=== PATIENT | female | born 1950 | race Caucasian/White ===

== ENCOUNTER 2017-04-17 19:23 | Emergency (ER) | payer MEDICARE, BC ==
[~2017-04-17] VITALS: Ht 161.3 cm; Wt 50.1 kg
[~2017-04-17 19:23] MED LIST: ACET-2723 PO; CETI-115 PO; NAPR220T61 PO; OMEP40CA52 PO; TRIA10.82 EA NOSTRIL
[2017-04-17 19:26] VITALS: Ht 161.3 cm; Wt 50.1 kg
--- OUTSIDE RECORDS SUMMARY | 2017-04-17 19:27 | XMS REPORT | Continuity of Care Document ---
Author Author [facility] Organization [facility] Address Unknown Phone Unavailable Support Name Relationship Address Phone ABDULAZIZ RIVERA FACS, MD Caregiver [address] [place] [address] [place] [address] Unavailable MELO BROWN MD Caregiver [address] [place] [address] [place] [address] Unavailable VU STRINGER Next Of Kin [address] [place], [place] [id number] Insurance Providers Guarantor Cindi Szymanski Address [address] [place] [id number] Email JORGE [email or web address] Federal Policy Number [id number] Subscriber's Name Jorge Luis Szymanski Relationship 01 Spouse Group Number [id number] Payer Medicare Policy Number [id number] Subscriber's Name Cindi Szymanski Relationship 18 Self Advance Directives Directive Response Recorded Date/Time Dr Mercado Resuscitation Status Full Code 10/21/16 3:51pm Resuscitation Documents on File No 10/24/16 9:25am DPOA for Healthcare Only Yes 10/24/16 9:25am Living Will Yes 10/24/16 9:25am Problems No problem information available. Medications Current Home Medications Medication Dose Units Route Directions Days Qty Instructions Start Date Acetaminophen (Tylenol Extra Strength) 500 Mg Tablet 1-2 Tab Oral Every 6 Hours as needed for Pain/Fever 10/21/16 Cetirizine Hcl (Zyrtec) 10 Mg Tablet 1 Tab Oral Daily 10/21/16 Naproxen Sodium (Aleve) 220 Mg Tablet 1 Tab Oral Daily as needed for Pain 10/21/16 Omeprazole 40 Mg Capsule.dr Alva Cap Oral Daily 90 10/21/16 Triamcinolone Acetonide (Nasacort) 10.8 Ml [place] 2 [place] Each Nostril Daily 2 sprays into EACH nostril one time a day. 10/21/16 Social History Social History Problem Response Recorded Date/Time Onset Date Status Reason for Hospitalization COLONOSCOPY 10/24/2016 10:52am Not Applicable Not Applicable Chewing Tobacco Status No 10/24/2016 9:26am Not Applicable Not Applicable Hx Substance Use No 10/24/2016 9:26am Not Applicable Not Applicable Hx Alcohol Use Y SOCIAL 10/24/2016 9:26am Not Applicable Not Applicable Has the pt used tobacco in the last 12 months No 10/24/2016 9:26am Not Applicable Not Applicable Query Response Start Date Stop Date Smoking Status Never smoker Hospital Discharge Instructions Instructions: Care Instructions: I was in the hospital because (patient own words): COLONOSCOPY Discharge Diet: As Tolerated Discharge Activity: Do NOT drive today, do not operate dangerous machinery or sign legal papers. Follow Up Appointments: Follow up with Dr. Rivera as needed. Pending Lab / Results: Will be notified Patient Instructions: Results/recommendations will be mailed in about 2-3 weeks. Expected Signs/Symptoms: None Notify Physician If: Call physician if temperature is GREATER than 101.5, severe abdominal pain or severe rectal bleeding. During Business Hours:: Call [phone] After Business Hours:: Call [phone] (hospital) Pain Management/Treatment: Call Dr. Rivera if increasing abdominal pain Wound/Incision Care: N/A Condition at time of discharge: Good Plan of Care Discharge Date 10/24/16 11:15am Instructions/Education Provided [facility] Surgical Services DI for Colonoscopy Prescriptions See Medication Section Functional Status Query Response Date Recorded Ability to complete ADL's impeded by No change October 24, 2016 9:25am Allergies, Adverse Reactions, Alerts Allergen Type Severity Reaction Status Last Updated Sulfa (Sulfonamide Antibiotics) Allergy Mild RASH Active 10/24/16 Immunizations Query Response on File Recorded Date/Time Hx Influenza Vaccination Y AUG 2016 10/24/16 9:26am Hx Pneumococcal Vaccination Y AUG 2016 10/24/16 9:26am Hx Influenza Vaccination Y AUG 2016 10/24/16 9:26am Vital Signs Acute Vital Signs Vital Response Date/Time Temperature (Fahrenheit) 97.3 deg F (96.8 - 99.1) 10/24/2016 10:43am Temperature (Calculated Celsius) 36.04364 degrees C (36.0 - 37.3) 10/24/2016 10:43am Temperature Source Temporal 10/24/2016 10:43am Pulse Rate (adult) 68 bpm (60 - 100) 10/24/2016 11:10am Respiratory Rate 16 breaths/min (10 - 20) 10/24/2016 11:10am O2 Sat by Pulse Oximetry 100 % (90 - 100) 10/24/2016 11:10am Oxygen Delivery Method Room Air 10/24/2016 11:10am Blood Pressure 151/68 mm Hg 10/24/2016 11:10am Blood Pressure Source Automatic Cuff 10/24/2016 11:10am Height (Feet) 5 feet 10/24/2016 9:08am Height (Inches) 3.00 inches 10/24/2016 9:08am Weight (Kilograms) 45.600 kg 10/24/2016 9:08am Body Mass Index (BMI) 17.8 10/24/2016 9:08am Results No known relevant diagnostic tests, laboratory data and/or discharge summary. Procedures Procedure Status Date Provider(s) COMP SCREEN MAMMOGRAM ADD-ON Completed 08/24/16 BREAST TOMOSYNTHESIS BI Completed 08/24/16 083285"SCREENING MAMMOGRAPHY, PRODUCING DIRECT DIGITAL IMAGE Completed [id number]"MAGNETIC RESONANCE IMAGING WITHOUT CONTRAST, BREAST; Completed Colonoscopy Completed 10/24/16 ABDULAZIZ RIVERA MD, FACS, CWS Esophagogastroduodenoscopy (EGD) with closed biopsy Completed 10/24/16 ABDULAZIZ RIVERA MD, ALICIA, GRECIAS Encounters Encounter Location Arrival/Admit Date Discharge/Depart Date Attending Provider Departed [facility] 10/24/16 8:55am 10/24/16 11 :15am ABDULAZIZ RIVERA FACS, MD Registered [facility] 09/01/16 3:27pm ANA IBARRA APRN Registered [facility] 08/24/16 9:17am [facility]
--- OUTSIDE RECORDS SUMMARY | 2017-04-17 19:27 | XMS REPORT | Referral Summary ---
Demographics Preferred Language Sami Marital Status Congregation Affiliation Jewish Race White Ethnic Group Not or Author Author [facility] Organization [facility] Address Unknown Phone Unavailable Care Team Providers Care Head Bookkeeper Name Role Phone Marco Grajeda Primary Care Physician [phone] Encounter [facility] BRIAN [id number] Date(s): 08/22/16 - 08/22/16 [facility], [address] [place], [place] [address] Discharge Diagnosis: Weight loss Discharge Diagnosis: Breast lump on right side at 2 o'clock position Discharge Diagnosis: Depression Discharge Diagnosis: GERD without esophagitis Discharge Diagnosis: Chronic daily headache Discharge Disposition: 01-Home or Self Care Attending Physician: Shilpa Olsen APRN Admitting Physician: Shilpa Olsen APRN Vital Signs Most recent to 1 oldest [Reference Range]: Temperature Tympanic 36.8 degC [36.6-38.1 degC] (08/22/16 9:43 AM) Peripheral Pulse 96 bpm Rate [60-100 bpm] (08/22/16 9:43 AM) Blood Pressure 126/84 mmHg [90-140/60-90 mmHg] (08/22/16 9:43 AM) Problem List Condition Effective Dates Status Health Status Informant Sinus < 09/29/15 Resolved trouble(Confirmed) Ear pain(Confirmed) < 09/29/15 Resolved Allergies, Adverse Reactions, Alerts Substance Reaction Severity Status sulfanilamide topical Active Medications Nasacort AQ 55 mcg/inh nasal spray sprays, Nasal, Daily, 0 Refill(s) Start Date: 01/06/16 Status: Ordered PriLOSEC 40 mg oral delayed release capsule 40 mg 1 caps, Oral, Daily, # 90 caps, 0 Refill(s), Pharmacy: [id number], 1 caps Oral Daily Start Date: 08/22/16 Status: Ordered Results Hematology Most recent to 1 oldest [Reference Range]: WBC [4.8-10.8 5.4 10*3/uL 10*3/uL] (08/22/16 10:38 AM) RBC [4.00-5.20] 4.24 (08/22/16 10:38 AM) Hgb [12.0-16.0 14.0 gm/dL gm/dL] (08/22/16 10:38 AM) Hct [37.0-47.0 %] 40.7 % (08/22/16 10:38 AM) MCV [82.0-99.0 fL] 96.0 fL (08/22/16 10:38 AM) MCH [27.0-32.0 pg] 33.0 pg *HI* (08/22/16 10:38 AM) MCHC [32.0-36.0 34.4 gm/dL gm/dL] (08/22/16 10:38 AM) RDW [11.5-14.5 %] 12.0 % (08/22/16 10:38 AM) Platelet [150-400 399 10*3/uL 10*3/uL] (08/22/16 10:38 AM) MPV [8.8-14.8 fL] 8.2 fL *LOW* (08/22/16 10:38 AM) Immature 0.2 % Granulocytes (08/22/16 10:38 AM) [0.0-1.0 %] Neutrophils [51-75 56 % %] (08/22/16 10:38 AM) Lymphocytes [20-46 34 % %] (08/22/16 10:38 AM) Monocytes [4-11 %] 8 % (08/22/16 10:38 AM) Eosinophils [0-4 %] 1 % (08/22/16 10:38 AM) Basophils [0-2 %] 0 % (08/22/16 10:38 AM) Neutro Absolute 3.03 10*3 [1.90-7.00 10*3] (08/22/16 10:38 AM) Lymph Absolute 1.84 10*3 [0.80-3.30 10*3] (08/22/16 10:38 AM) Boyd Absolute 0.43 10*3 [0.30-1.00 10*3] (08/22/16 10:38 AM) Eos Absolute 0.06 10*3 [0.00-0.50 10*3] (10/3/16 10:38 AM) Baso Absolute 0.02 10*3 [0.00-0.20 10*3] (08/22/16 10:38 AM) Chemistry Most recent to 1 oldest [Reference Range]: Sodium Lvl [135-144 139 mEq/L mEq/L] (08/22/16 10:38 AM) Potassium Lvl 3.9 mEq/L [3.5-5.2 mEq/L] (08/22/16 10:38 AM) Chloride [99-111 101 mEq/L mEq/L] (08/22/16 10:38 AM) CO2 [22-31 mEq/L] 26 mEq/L (08/22/16 10:38 AM) AGAP [3-20] 12 (08/22/16 10:38 AM) BUN [10-20 mg/dL] 14 mg/dL (08/22/16 10:38 AM) Glucose Lvl [70-99 108 mg/dL mg/dL] *HI* (08/22/16 10:38 AM) Creatinine Lvl 0.95 mg/dL [0.57-1.11 mg/dL] (08/22/16 10:38 AM) eGFR [>60 mL/min] 59 mL/min 1 *ABN* (08/22/16 10:38 AM) Calcium Lvl 9.9 mg/dL [8.9-10.5 mg/dL] (08/22/16 10:38 AM) Albumin Lvl [3.4-4.8 4.9 gm/dL gm/dL] *HI* (08/22/16 10:38 AM) Total Protein 7.2 gm/dL [6.0-7.6 gm/dL] (08/22/16 10:38 AM) Globulin [1.8-4.0 2.3 gm/dL gm/dL] (08/22/16 10:38 AM) ALT [0-55 U/L] 21 U/L (08/22/16 10:38 AM) AST [5-34 U/L] 26 U/L (08/22/16 10:38 AM) Alk Phos [40-150 70 U/L U/L] (08/22/16 10:38 AM) Bili Total [0.2-1.2 0.5 mg/dL mg/dL] (08/22/16 10:38 AM) Prealbumin [14-37 32 mg/dL mg/dL] (08/22/16 10:38 AM) TSH with Reflex Free 1.71 T4 [0.35-4.94] (08/22/16 10:38 AM) 1Result Comment: Multiply eGFR results by 1.21 for race. Urinalysis Most recent to 1 oldest [Reference Range]: UA Color Dk Yellow (08/22/16 10:46 AM) UA Appear Cloudy *ABN* (08/22/16 10:46 AM) UA pH [5.0-8.0] 5.5 (08/22/16 10:46 AM) UA Leuk Est Negative [Negative] (08/22/16 10:46 AM) UA Nitrite Negative [Negative] (08/22/16 10:46 AM) UA Protein Pos 3+ 1 [Negative] *CRIT* (08/22/16 10:46 AM) UA Glucose Negative [Negative] (08/22/16 10:46 AM) UA Ketones Negative [Negative] (08/22/16 10:46 AM) UA Urobilinogen 0.2 mg/dL [<=1.0 mg/dL] (08/22/16 10:46 AM) UA Bili [Negative] Positive 2 *ABN* (08/22/16 10:46 AM) UA Blood [Negative] Pos 1+ *ABN* (08/22/16 10:46 AM) UA Spec Grav >=1.030 [1.003-1.030] (08/22/16 10:46 AM) Type Clean Catch (08/22/16 10:46 AM) UA WBC [0-4] 5-10 *ABN* (08/22/16 10:46 AM) UA RBC [0-2] 5-10 *ABN* (08/22/16 10:46 AM) UA Bacteria Moderate *ABN* (08/22/16 10:46 AM) Crystals Amorphous 3 (08/22/16 10:46 AM) UA Hyal Cast >12 (08/22/16 10:46 AM) UA Gran Cast >12 [LPF] *ABN* (08/22/16 10:46 AM) UA WBC Cast 4-6 *ABN* (08/22/16 10:46 AM) 1Result Comment: Critical protein rechecked and called to Zhao/Shilpa @ 1103 by pls. 2Result Comment: Unable to confirm positive Bilirubin by Ictotest due to national shortage of reagent. 3Result Comment: Occasional Immunizations Vaccine Date Refusal Reason influenza virus vaccine, inactivated 08/22/16 influenza virus vaccine, inactivated 08/12/15 influenza virus vaccine, inactivated 06/30/14 influenza virus vaccine, live 07/01/13 influenza virus vaccine, live 07/27/12 influenza virus vaccine, live 10/03/00 pneumococcal 13-valent conjugate vaccine 08/22/16 pneumococcal 23-polyvalent vaccine 08/12/15 zoster vaccine live 12/24/14 Procedures Procedure Date Related Diagnosis Body Site Mastoidectomy Social History Social History Type Response Smoking Status Never smoker Assessment and Plan Extracted from: Title: Office Visit Note-weight Author: Shilpa Olsen APPEALS RN Date: 08/22 loss/breast lump Assessment/Plan 1.Weight loss Discussed with the patient her weight loss may be multi factorial. I think is reasonable to pursue evaluationfor medical causes. Certainly her depression and life stressors could be contributing/causing it. Labs as ordered. Colonoscopy recommended. Patient to schedule with Dr. Lares. Recommend she drink a nutritional supplement such as boost, ensure or Og[place] Instant Breakfastonce a day. Encourage her to eat small meals 4-5 times per day. Increase her protein intake. Plan recheck in 2 weeks. Ordered: CBC w/ Differential Comprehensive Metabolic Panel Prealbumin TSH with Reflex Free T4 Urinalysis with Culture if Indicated XR Chest 2 Views 2.Breast lump on right side at 2 o'clock position Difficult to assess. Recommend diagnosticmammogram of the right breast. Screening of the left. Patient to schedule at [facility]. I suspect she may need a sonogram also. 3.GERD without esophagitis Symptomatic. Start Ctabspcl14 mg daily. Avoid caffeine, nights nonsteroidals and aspirin. Avoid alcohol. When she is evaluated by Dr. Lares for colonoscopy if her acid reflux symptoms and weighthave not improved may need to consider EGD also. 4.Depression We discussed therapy and medication management. At this point patient does not feel like it is necessary. She is ashamed of admitting the feelings of depression. 5.Chronic daily headache Discussed possibility ofrebound headaches versus other possible causes for her headaches. I recommend she switch to plain [id number] mg 2 tabletsevery day as needed. Discussed that the Excedrin Migraine may be increasing her acid reflux symptoms. If her headaches do not improve, may want to consider imaging. Plan recheck in 2 weeks. Sooner if other problems arise. Counseled on flu andpneumococcal vaccine. Given by nursing.
--- OUTSIDE RECORDS SUMMARY | 2017-04-17 19:27 | XMS REPORT | Referral Summary ---
Author Author [facility] Organization [facility] Address Unknown Phone Unavailable Care Team Providers Care Cryptologic Linguist Name Role Phone Marco Grajeda Primary Care Physician [phone] Encounter Date(s): 09/05/16 - 09/05/16 [facility], [address] [place] [address]- Discharge Diagnosis: GERD without esophagitis Discharge Diagnosis: Abnormal urine Discharge Diagnosis: Chronic daily headache Discharge Diagnosis: Seasonal allergic rhinitis Discharge Diagnosis: Breast lump on right side at 2 o'clock position Discharge Diagnosis: Weight loss Discharge Disposition: 01-Home or Self Care Attending Physician: Shilpa Olsen APRN Admitting Physician: Shilpa Olsen APRN Vital Signs Most recent to 1 oldest [Reference Range]: Temperature Tympanic 36.6 degC [36.6-38.1 degC] (09/05/16 8:53 AM) Peripheral Pulse 84 bpm Rate [60-100 bpm] (09/05/16 8:53 AM) Blood Pressure 120/76 mmHg [90-140/60-90 mmHg] (09/05/16 8:53 AM) Problem List Condition Effective Dates Status Health Status Informant Sinus < 09/29/15 Resolved trouble(Confirmed) GERD without Active esophagitis(Confirme d) Ear pain(Confirmed) < 09/29/15 Resolved Allergies, Adverse Reactions, Alerts Substance Reaction Severity Status sulfanilamide topical Active Medications Nasacort AQ 55 mcg/inh nasal spray sprays, Nasal, Daily, 0 Refill(s) Start Date: 01/06/16 Status: Ordered PriLOSEC 40 mg oral delayed release capsule 40 mg 1 caps, Oral, Daily, # 90 caps, 0 Refill(s), Pharmacy: [id number], 1 caps Oral Daily Start Date: 08/22/16 Status: Ordered Results No data available for this section Immunizations Vaccine Date Refusal Reason influenza virus vaccine, inactivated 08/22/16 influenza virus vaccine, inactivated 08/12/15 influenza virus vaccine, inactivated 06/30/14 influenza virus vaccine, live 07/01/13 influenza virus vaccine, live 07/27/12 influenza virus vaccine, live 10/03/00 pneumococcal 13-valent conjugate vaccine 08/22/16 pneumococcal 23-polyvalent vaccine 08/12/15 zoster vaccine live 12/24/14 Procedures Procedure Date Related Diagnosis Body Site Mammogram1 08/24/16 [place]oide[place] [facility] [place] Social History Social History Type Response Smoking Status Never smoker Assessment and Plan Extracted from: Title: Office Visit Note-GERD/wt Author: Shilpa Olsen OBGYN NURSE Date: Assessment/Plan 1.GERD without esophagitis Continue Prilosecdaily with dietary modifications. Continue to stay off of Excedrin Migraine. Keep appointment with Dr. Lares September 21 to review need for EGD and colonoscopy. 2.Breast lump on right side at 2 o'clock position MRI of the breast pending. We'll notify her of results and further plan of care. 3.Chronic daily headache Improved. Continue with what she is doing. 4.Weight loss Weight is up 3 pounds. Continue boost daily until she has regained herweight to 115. 5.Seasonal allergic rhinitis Continue Nasacort first freeze. 6.Abnormal urine Renal sonogram pending. We'll notify her of results and further plan of care. Recent labs and imaging reviewed with patient. Plan follow-up in one month or sooner if issues arise. Questions and concerns were answered.
--- OUTSIDE RECORDS SUMMARY | 2017-04-17 19:27 | XMS REPORT | Referral Summary ---
Author Author [facility] Organization [facility] Address Unknown Phone Unavailable Care Team Providers Care Commission Agent Livestock Name Role Phone Marco Grajeda Primary Care Physician [phone] Encounter VC Date(s): 09/21/16 - 09/21/16 [facility] [address] [place] [address] [place] [id number] Discharge Diagnosis: Colon cancer screening Discharge Diagnosis: Weight loss Discharge Diagnosis: Chronic GERD Discharge Disposition: 01-Home or Self Care Attending Physician: Aiden Lares MD Admitting Physician: Aiden Lares MD Referring Physician: Alex Grajeda MD Vital Signs Most recent to 1 oldest [Reference Range]: Temperature Tympanic 36.7 degC [36.6-38.1 degC] (09/21/16 1:03 PM) Peripheral Pulse 71 bpm Rate [60-100 bpm] (09/21/16 1:03 PM) Blood Pressure 134/76 mmHg [90-140/60-90 mmHg] (09/21/16 1:03 PM) SpO2 98 % (09/21/16 1:03 PM) Problem List Condition Effective Dates Status Health [...] Daily, # 90 caps, 0 Refill(s), Pharmacy: [id number], 1 caps Oral Daily Start Date: 08/22/16 [...] Related Diagnosis Body Site Mammogram1 08/24/16 Mastoidectomy [facility] benign Social History Social History Type Response Smoking Status Never smoker Assessment and Plan Extracted from: Title: Ambulatory Patient Education Author: Aiden Lares MD Date: 09/21/16 Preventive Medicine Colonoscopy A colonoscopy is an exam to look at the entire large intestine (colon). This exam can help find problems such as tumors, polyps, inflammation, and areas of bleeding. The exam takes about 1 hour. LET YOUR HEALTH CARE PROVIDER KNOW ABOUT: Any allergies you have. All medicines you are taking, including vitamins, herbs, eye drops, creams, and [id number]-unonzeb medicines. Previous problems you or members of your family have had with the use of anesthetics. Any blood disorders you have. Previous surgeries you have had. Medical conditions you have. RISKS AND COMPLICATIONS Generally, this is a safe procedure. However, as with any procedure, complications can occur. Possible complications include: Bleeding. Tearing or rupture of the colon wall. Reaction to medicines given during the exam. Infection (rare). BEFORE THE PROCEDURE Ask your health care provider about changing or stopping your regular medicines. You may be prescribed an oral bowel prep. This involves drinking a large amount of medicated liquid, starting the day before your procedure. The liquid will cause you to have multiple loose stools until your stool is almost clear or light green. This cleans out your colon in preparation for the procedure. Do not eat or drink anything else once you have started the bowel prep, unless your health care provider tells you it is safe to do so. Arrange for someone to drive you home after the procedure. PROCEDURE You will be given medicine to help you relax (sedative). You will lie on your side with your knees bent. A long, flexible tube with a light and camera on the end (colonoscope) will be inserted through the rectum and into the colon. The camera sends video back to a computer screen as it moves through the colon. The colonoscope also releases carbon dioxide gas to inflate the colon. This helps your health care provider see the area better. During the exam, your health care provider may take a small tissue sample (biopsy) to be examined under a microscope if any abnormalities are found. The exam is finished when the entire colon has been viewed. AFTER THE PROCEDURE Do not drive for 24 hours after the exam. You may have a small amount of blood in your stool. You may pass moderate amounts of gas and have mild abdominal cramping or bloating. This is caused by the gas used to inflate your colon during the exam. Ask when your test results will be ready and how you will get your results. Make sure you get your test results. This information is not intended to replace advice given to you by your health care provider. Make sure you discuss any questions you have with your health care provider. Document Released: 11/03/2001 Document Revised: 08/27/2014 Document Reviewed: [employer] Interactive Patient Education 2016 [employer] No follow up information was provided. Extracted from: Title: Office Visit Note Author: Aiden Lares MD Date: 09/21/16 Assessment/Plan 1.Chronic GERD Ordered: Office Visit Level 4 New 55367 2.Colon cancer screening Ordered: Office Visit Level 4 New 16217 3.Weight loss Ordered: Office Visit Level 4 New [address]202 Plan: Bidirectional Endoscopy. I did review the patient's chart include office note performed by her PCPs comparator operator from September 05, 2016. C that she had lab work obtained on August 22, 2016 consisting of a CBCCMP and TSH level all of which was essentially within normal limits. I informed the patient that I would recommend proceeding with both an EGD as well as a colonoscopygiven her history for weight loss,fact that she 65 years of age and had never underwent prior colonoscopy,as well as secondary to her history forNSAID use and epigastric discomfort. Risk of endoscopy was discussed with the patient. Risks include but are not inclusive of bleeding and/or perforation requiring surgery. Patient understood and was scheduled.
--- OUTSIDE RECORDS SUMMARY | 2017-04-17 19:27 | XMS REPORT | Continuity of Care Document ---
Author Author [facility] Organization [facility] Address Unknown Phone Unavailable Allergies Medications Problems Procedures Results Encounters ACCT No. Visit Date/Time Discharge Status Pt. Type Provider Facility Loc./Unit Complaint [id number] 11/28/2013 13:46:00 11/28/2013 23 :59:59 CLS Outpatient
--- OUTSIDE RECORDS SUMMARY | 2017-04-17 19:27 | XMS REPORT | Referral Summary ---
Author Author [facility], Family Medicine Organization [facility] Address Unknown Phone Unavailable Care Team Providers Care Technician Terminal And Repeater Name Role Phone Marco Grajeda Primary Care Physician [phone] Encounter [facility] [id number] Date(s): 09/27/16 - 09/27/16 [facility], [address] [place] [id number] Discharge Diagnosis: GERD without esophagitis Discharge Diagnosis: Acute serous otitis media, right ear Discharge Diagnosis: Hyperglyceridemia Discharge Diagnosis: Weight loss Discharge Diagnosis: Seasonal allergic rhinitis Discharge Diagnosis: Chronic daily headache Discharge Diagnosis: Lipids abnormal Discharge Disposition: 01-Home or Self Care Attending Physician: Shilpa Olsen APRN Admitting Physician: Shilpa Olsen APRN Vital Signs Most recent to 1 oldest [Reference Range]: Temperature Tympanic 36.8 degC [36.6-38.1 degC] (09/27/16 10:52 AM) Peripheral Pulse 68 bpm Rate [60-100 bpm] (09/27/16 10:52 AM) Blood Pressure 114/76 mmHg [90-140/60-90 mmHg] (09/27/16 10:52 AM) Problem List Condition Effective Dates Status Health Status Informant Sinus < 09/29/15 Resolved trouble(Confirmed) GERD without Active esophagitis(Confirme d) Ear pain(Confirmed) < 09/29/15 Resolved Allergies, Adverse Reactions, Alerts Substance Reaction Severity Status sulfanilamide topical Active Medications amoxicillin 875 mg oral tablet 875 mg 1 tabs, Oral, BID, X 10 days, # 20 tabs, 0 Refill(s), Pharmacy: [id number], 1 tabs Oral BID,x10 days Start Date: 09/27/16 Stop Date: 10/07/16 Status: Ordered Nasacort AQ 55 mcg/inh nasal spray 1 sprays, Nasal, Daily, # 3 Each, 3 Refill(s), Pharmacy: [id number] Start Date: 09/27/16 Status: Ordered PriLOSEC 40 mg oral delayed release capsule 40 mg 1 caps, Oral, Daily, # 90 caps, 0 Refill(s), Pharmacy: [id number], 1 caps Oral Daily Start Date: 08/22/16 [...] Related Diagnosis Body Site Mammogram1 08/24/16 Mastoidectomy [facility] benign Social History Social History Type Response Smoking Status Never smoker Assessment and Plan Extracted from: Title: Office Visit Note-ear Author: Shilpa Olsen APRN Date: 09/27/16 Assessment/Plan 1.Acute serous otitis media, right ear Amoxicillin 875 mg one by mouth twice a day 10 days. Let me know if itdoes not improve. 2.Weight loss Encourage her to work on eating more. Frequent snacking. Nutritional supplement. 3.Seasonal allergic rhinitis Continue fluticasone one spray twice a day routinely. Well controlled. 4.Chronic daily headache Overall improved withstopping Excedrin and decreasing caffeine intake. 5.GERD without esophagitis Well controlled with Prilosec. Continue same. EGD and colonoscopy per Dr. Lares. Plan follow-up in 3months or sooner if medical needs arise.
--- OUTSIDE RECORDS SUMMARY | 2017-04-17 19:34 | XMS REPORT | Continuity of Care Document ---
Author Author [facility] Organization [facility] Address Unknown Phone Unavailable Allergies Medications Problems Procedures Results Encounters ACCT No. Visit Date/Time Discharge Status Pt. Type Provider Facility Loc./Unit Complaint [id number] 11/28/2013 13:46:00 11/28/2013 23 :59:59 CLS Outpatient
--- NOTE | 2017-04-17 19:37 | NUR ---
DR DR LINDSEY AT BEDSIDE.
--- NOTE | 2017-04-17 19:44 | ERPDOC ---
Departure Disposition Decision Date: April 17, 2017 Disposition Decision Time: 21:31 Disposition: 01 DISCHARGED HOME, SELF-CARE Impression Impression Impression: Primary Impression: Viral gastroenteritis Additional Impression: Dehydration Severity: Severe Condition: Improved Seen By: Physician only Referrals: MELO BROWN MD (Family) Patient Instructions: Gastroenteritis (ED) Problems/Meds/Labs Reviewed?: Yes Medications reviewed and manag: Yes Additional Instructions: Zofran 4 mg, one tablet 4 times daily as needed for nausea or vomiting Drink at least 2 quarts of fluid daily for the next 2 days, then return to her normal intake of fluids Follow up care ordered?: Yes Mental Status: Alert Scripts Ondansetron (Zofran Odt) 4 Mg Tab.rapdis 4 MG PO Q6HR, #10 TAB Oral disintegrating tablet Prov: WAGNER LINDSEY MD 04/17/17 HPI - Abdominal Pain General Chief Complaint: Nausea,Vomiting,Diarrhea Stated Complaint: UNABLE TO KEEP ANYTHING DOWN Time Seen by Provider: 19:24 Source: patient, family History/Exam Limitations: no limitations HPI - Abdominal Pain Initial Comments Nausea, vomiting, and periodic left lower quadrant abdominal cramping. Past 2 days. Patient has been traveling, over the weekend, and when she was in [place] she became sick. She has had several episodes similar to this in the past year, and in fact has had colonoscopy for questionable chronic blood loss and chronic weight loss. Patient had no findings on the colonoscopy. Patient does have a history of GERD, is supposed to be using Prilosec routinely , but uses it sporadically at best. Occurred At: home Onset: Gradual Quality: cramping Location: LLQ Radiation: no radiation Associated Symptoms: nausea/vomiting, DENIES: back pain, chest pain, diaphoresis, fatigue, fever/chills, headache, heartburn, rash, shortness of breath, swelling/mass in abdomen, syncope, weakness Hx of Similar Symptoms: Yes Allergies: Coded Allergies: Sulfa (Sulfonamide Antibiotics) (Verified Allergy, Mild, RASH, 04/17/17) Past History Patient Medical History Problem List Updates: Chronic weight loss Past Medical History GI: GERD Surgical History Denies Surgeries Vaccines Hx Influenza Vaccination: Yes (AUG 2016) Hx Pneumococcal Vaccination: Yes (AUG 2016) Social History Smoking Status: Never smoker Does patient use chewing tobac: No Second Hand Exposure: No Substance Use Type: does not use Record Review Pertinent history updated: Yes Review of Systems Constitutional Constitutional: fatigue, weakness, DENIES: appetite decrease, appetite increase , chills, dizziness, fever ENMT Ears: DENIES: pain Hearing: DENIES: hearing loss, tinnitus Balance: DENIES: vertigo Mouth/Throat: DENIES: change in swallowing, change in voice, hoarsness, painful swallowing, sore throat Cardiovascular Cardiac: DENIES: chest pain, dyspnea on exertion Rhythm/Rate: DENIES: irregular beat, palpitations, tachycardia Vascular: DENIES: pedal edema Pulmonary Respiratory: DENIES: cough, dyspnea, pleuritic chest pain GI Upper Abdomen: nausea, vomiting, DENIES: dysphagia, food intolerances, heartburn/indigestion, hematemesis, pain Lower Abdomen: pain, DENIES: blood in stool, lillian-colored stools, constipation , diarrhea, melena, painful BM General: DENIES: burning, dysuria, frequency, pain, urgency Musculoskeletal General: DENIES: cramps, joint pain, joint swelling, pain, weakness Integumentary Skin: DENIES: rash, sores Neurological General: DENIES: headache, numbness, tingling, vertigo, weakness Psychiatric Psychiatric: DENIES: anxiety, depression, nervousness Physical Exam General General Nourishment: well nourished, well developed, appears stated age, thin General Body Habitus: well groomed Vitals and Pain First Documented Vital Signs Date Time Temp Pulse Resp B/P Pulse Ox O2 Delivery O2 Flow Rate FiO2 04/17/17 19:26 97.7 76 18 167/85 99 Room Air Weight: Kilograms: 50.100 Height (feet): 5 Height (inches): 3.50 Triage Pain Scale: RN VS reviewed by Provider: Yes Normal Exams: Head: Normocephalic w/o trauma Eyes: Pupils are PERRLA w/ EOMI, No scleral icterus, irritation, or foreign bodies noted ENMT: No facial trauma, nasal exudates, pharyngeal erythema, or exudates are noted Neck: Full range of motion, without adenopathy, JVD, bruits or thyromegaly Chest/Resp: Clear all byrd, with good airflow, and symmetry bilaterally CV: Regular rate and rhythm, without murmur or gallop, Pulses 2+ all extremities, capillary refill, <2 seconds all ext., no pedal edema noted Lymphatic: No lymphadenopathy, or lymphedema noted Musculoskeletal: No tenderness, or deformity noted, good range of motion, all extremities Integumentary: No rashes, hives, or bruising noted, hair and nails, without abnormality Neurologic: Patient is alert, and oriented, cranial nerves, motor/sensory/ cerebellar, exams w/o gross deficits, to observation Psychiatric: Patient exhibits, appropriate attention, emotion and affect Abdomen (brief) Abdominal Brief: FOUND: soft, NOT FOUND: bowel normo active x4 (decreased throughout), distended, hepatosplenomegaly, pulsatile mass, tender Progress Results/Orders Orders Procedure Category Date Status Time Iv Lock (Ed Only) EDM 04/17/17 Transmitted 19:34 Cbc W/Auto LAB 04/17/17 Complete Diff-Reflex Manual Cmp - Comprehensive LAB 04/17/17 Complete Metabolic Lipase LAB 04/17/17 Complete Normal Saline (Normal PHA 04/17/17 Complete Saline Iv) 19:45 Ondansetron Inj PHA 04/17/17 Complete (Zofran) 19:45 Acetaminophen PHA 04/17/17 Complete (Ofirmev) 19:45 UA, LAB 04/17/17 In Process Dip&Micro(Complete) & 20:59 Lab Results Laboratory Tests Test 04/17/17 19:48 04/17/17 20:59 White Blood Count 7.4T/MM3 Red Blood Count 3.67M/MM3 Hemoglobin 12.5GM/DL Hematocrit 34.4% Mean Corpuscular Volume 93.7UM3 Mean Corpuscular Hemoglobin 34.1UUG Mean Corpuscular Hemoglobin Concent 36.3GM/DL RDW Standard Deviation 36.4FL Platelet Count 292T/MM3 Mean Platelet Volume 8.1UM3 Immature Granulocyte % (Auto) 0.1% Neutrophils (%) (Auto) 65.7% Lymphocytes (%) (Auto) 28.4% Monocytes (%) (Auto) 5.4% Eosinophils (%) (Auto) 0.1% Basophils (%) (Auto) 0.3% Absolute Immature Granulocyte (auto 0.01T/MM3 Absolute Neutrophils (auto) 4.9T/MM3 Absolute Lymphocytes (auto) 2.1T/MM3 Absolute Monocytes (auto) 0.4T/MM3 Absolute Eosinophils (auto) 0.0T/MM3 Absolute Basophils (auto) 0.0T/MM3 Turbidity < 20 Sodium Level 129MEQ/L Potassium Level 3.5MEQ/L Chloride Level 94MEQ/L Carbon Dioxide Level 21MEQ/L Anion Gap 14MEQ/L Blood Urea Nitrogen 10.0MG/DL Creatinine 0.5MG/DL Glomerular Filtration Rate Calc 123 BUN/Creatinine Ratio 20RATIO Glucose Level 122MG/DL Calculated Osmolality 249MOSM/KG Calcium Level 9.3MG/DL Total Bilirubin 0.90MG/DL Icterus Index < 2 Aspartate Amino Transf (AST/SGOT) 35U/L Alanine Aminotransferase (ALT/SGPT) 47U/L Alkaline Phosphatase 64U/L Total Protein 6.9G/DL Albumin 4.5G/DL Globulin 2.4G/DL Albumin/Globulin Ratio 1.9RATIO Lipase 25U/L Chemistry Specimen Hemolysis < 15 Urine Collection Type Cleancatch-midstream Urine Color Yellow Urine Turbidity Clear Urine pH 7.0 Urine Specific [place] 1.010 Urine Protein Negative Urine Glucose (UA) Negative Urine Ketones 2+ Urine Blood 2+ Urine Nitrite Negative Urine Bilirubin Negative Urine Urobilinogen NormalEU/DL Urine Leukocyte Esterase Negative Urine RBC 1-3/HPF Urine WBC 0-1/HPF Urine Squamous Epithelial Cells 0-5 Urine Bacteria Trace Urine Mucus Present Urine Culture Indicated Cult not indicated Medications Current ED Medications Sodium Chloride (Normal Saline IV) 1,000 ml @ 0 mls/hr Q0M ONCE IV Last administered on 04/17/17 19:52; Start 04/17/17 at 19:45; Stop 04/17/17 at 19:46 ; Status DC Ondansetron HCl 4 mg 4 mg O ONCE IV Last administered on 04/17/17 19:53; Start 04/17/17 at 19:45; Stop 04/17/17 at 19:46; Status DC Acetaminophen/ Sodium Chloride (Ofirmev) 200 ml @ 400 mls/hr O ONCE IV Last administered on 04/17/17 20:11; Start 04/17/17 at 19:45; Stop 04/17/17 at 20:14 ; Status DC Progress Progress Patient given Zofran, IVC minimum, and 1 L normal saline IV fluid bolus - to relief CBC - n CMP/L - n UA - n WAGNER LINDSEY MD April 17, 2017 19:44
[2017-04-17] MEDS ORDERED: ACETAMINOPHEN 1,000 MG in RTU-SALINE 100 ML IV ONE (19:45)
[2017-04-17] MEDS ORDERED: NORMAL SALINE 1,000 ML IV ONE (19:45)
[2017-04-17] MEDS ORDERED: ONDANSETRON 4mg/2ml INJECTION IV ONE (19:45)
--- NOTE | 2017-04-17 19:49 | NUR ---
IVL/MEDS PT GIVEN INSTRUCTION REGARDING IVL/NS AND MEDICATION ORDERED. UNDERSTANDING VERBALIZED.
[2017-04-17 19:57] LABS: BASOPHILS % (AUTO) 0.3 % (0-2); EOSINOPHILS % (AUTO) 0.1 % (0-4); HCT - HEMATOCRIT 34.4 % (36-46); HGB - HEMOGLOBIN 12.5 GM/DL (12-16); IMMATURE GRANULOCYTE # (AUTO) 0.01 T/MM3 (0.00-0.03); IMMATURE GRANULOCYTE % (AUTO) 0.1 % (0.0-0.5); LYMPHOCYTES # (AUTO) 2.1 T/MM3 (1-4.8); LYMPHOCYTES % (AUTO) 28.4 % (23-45); MEAN CORPUSCULAR HGB 34.1 UUG (26-34); MEAN CORPUSCULAR HGB CONC(MCHC 36.3 GM/DL (31-37); MEAN CORPUSCULAR VOLUME 93.7 UM3 (80-100); MEAN PLATELET VOLUME 8.1 UM3 (9.4-12.4); MONOCYTES # (AUTO) 0.4 T/MM3 (0-0.8); MONOCYTES % (AUTO) 5.4 % (0-9.0); NEUTROPHILS #(AUTO)-ABSOLUTE 4.9 T/MM3 (1.8-7.7); NEUTROPHILS % (AUTO) 65.7 % (33-66); RED BLOOD COUNT 3.67 M/MM3 (4.00-5.20); WBC - WHITE BLOOD COUNT 7.4 T/MM3 (4.5-11.0)
[2017-04-17 20:05] LABS: ALBUMIN 4.5 G/DL (3.5-5.0); ALBUMIN/GLOBULIN RATIO 1.9 RATIO (1.1-2.2); ALKALINE PHOSPHATASE 64 U/L (38-126); ALT (SGPT) 47 U/L (9-52); ANION GAP 14 MEQ/L (5-15); AST (SGOT) 35 U/L (14-36); BUN/CREATININE RATIO 20 RATIO (6-26); CALCIUM 9.3 MG/DL (8.4-10.2); CHLORIDE 94 MEQ/L (98-107); CO2 - CARBON DIOXIDE 21 MEQ/L (22-30); CREATININE 0.5 MG/DL (0.7-1.2); GLOMERULAR FILTRATION RATE 123; GLUCOSE 122 MG/DL (65-110); LIPASE 25 U/L (23-300); POTASSIUM 3.5 MEQ/L (3.6-5); SODIUM 129 MEQ/L (134-144); TOTAL PROTEIN 6.9 G/DL (6.3-8.2)
--- NOTE | 2017-04-17 20:28 | NUR ---
STATUS PT REPORTS NAUSEA SLIGHTLY IMPROVED, REPORTS HEADACHE IMPROVED.
[2017-04-17 21:21] LABS: COLOR,URINE YELLOW (YELLOW)
[2017-04-17 21:22] LABS: BLOOD, URINE 2+ (NEGATIVE); LEUKOCYTE ESTERASE ,URINE NEGATIVE (NEGATIVE); NITRITE,URINE NEGATIVE (NEGATIVE); UROBILINOGEN,URINE NORMAL (NORMAL)
[2017-04-17 21:24] LABS: BACTERIA,URINE TRACE (NEGATIVE); MUCUS,URINE PRESENT; SQUAMOUS EPITHELIAL CELL,UR 0-5; WBC,URINE 0-1 /HPF (0-5)
--- NOTE | 2017-04-17 21:29 | NUR ---
DR DR LINDSEY AT BEDSIDE.
[2017-04-17] MEDS ORDERED: ONDA4TAB7 PO (21:32)
[2017-04-17] MEDS ORDERED: ONDANSETRON ODT 4mg #3 (PrePack) SENT HOME ONE (21:45)
[2017-04-17 21:54] VITALS: BP 121/80; PULSE 72; RESP 12; TEMP 97.7; O2SAT 97
--- NOTE | 2017-04-17 21:54 | NUR ---
DEPART PT AMBULATORY TO LOBBY AT THIS TIME, ACCOMPANIED BY .
== END 2017-04-17 21:54 | disposition home or self-care (01) ==
LOC: ED 19:23
DX: A08.4 Viral intestinal infection, unspecified (principal); E86.0 Dehydration
CPT/HCPCS: 80053; 81001; 83690; 85025; 96361; 96374; 96375; 99284; J0131; J2405; J7030; J7050